=== PATIENT | female | born 1990 | race Hispanic/Latino ===

== ENCOUNTER 2021-08-06 10:05 | Observation (INO) | payer OTHER ==
[2021-08-05 08:15] LABS: BASOPHILS % 0.4 % (0.0-1.0); EOSINOPHILS # (AUTO) 0.2 (0.0-0.4); EOSINOPHILS % 2.6 % (0.0-6.0); LYMPHOCYTES # (AUTO) 1.7 (1.0-3.2); LYMPHOCYTES % 23.2 % (18.0-39.1); MEAN CORPUSCULAR HEMOGLOBIN 29.6 pg (28-32); MEAN CORPUSCULAR HGB CONC 32.4 g/dL (31-35); MEAN CORPUSCULAR VOLUME 91.1 fL (81-99); MONOCYTES # (AUTO) 0.7 (0.2-0.8); MONOCYTES % 9.6 % (4.4-11.3); NEUTROPHILS # (AUTO) 4.6 (2.1-6.9); NEUTROPHILS % 64.1 % (38.7-80.0); PLATELET COUNT 260 x10e3/uL (140-360); RED BLOOD COUNT 4.06 x10e6/uL (3.6-5.1); RED CELL DISTRIBUTION WIDTH 12.7 % (11.7-14.4)
[~2021-08-06] VITALS: Ht 162.6 cm; Wt 60.8 kg
[2021-08-06 10:56] LABS: CLARITY,URINE CLEAR (CLEAR); COLOR,URINE YELLOW (YELLOW); KETONES,URINE NEGATIVE (NEGATIVE); LEUKOCYTE ESTERASE ,URINE NEGATIVE (NEGATIVE); NITRITE,URINE NEGATIVE (NEGATIVE); PROTEIN,URINE DIPSTICK NEGATIVE (NEGATIVE); URINE UROBILINOGEN 0.2 mg/dL (0.2 - 1)
[2021-08-06] MEDS ORDERED: LIDOCAINE 1% W/EPINEPHRINE 20 ML VIAL ONE (12:06)
[2021-08-06] MEDS ORDERED: BUPIVACAINE 0.25% 30ML SDV ONE (12:07)
[2021-08-06] MEDS ORDERED: ACETAMINOPHEN 325 MG TAB PO PRN (15:45)
[2021-08-06] MEDS ORDERED: ONDANSETRON HCL INJ 2MG/ML 2ML 2 MG/ML VIAL IV PRN (15:45)
[2021-08-06] MEDS ORDERED: BISACODYL 10 MG SUPP PR PRN (15:45)
[2021-08-06] MEDS ORDERED: DIPHENHYDRAMINE HCL 25 MG CAP PO PRN (15:45)
[2021-08-06] MEDS ORDERED: DOCUSATE SODIUM 100 MG CAP PO PRN (15:45)
[2021-08-06] MEDS ORDERED: ACETAMINOPHEN/CODEINE 300MG - 30MG TAB PO PRN (15:45)
[2021-08-06] MEDS ORDERED: MEPERIDINE HCL INJ 25 MG/ML VIAL ONE (15:57)
[2021-08-06] MEDS ORDERED: KETOROLAC TROMETHAMINE 30 MG/ML VIAL ONE (16:01)
[2021-08-06] MEDS ORDERED: ACETAMINOPHEN 1000 MG/100 ML 100 ML IV ONE (16:15)
[2021-08-06] MEDS ORDERED: HYDROMORPHONE 1MG/1ML INJ ONE (16:15)
[2021-08-06 17:20] VITALS: BP 115/70
[2021-08-06 17:50] VITALS: BP 115/70
[2021-08-06 17:57] VITALS: BP 115/70
[2021-08-06] MEDS: LACTATED RINGER'S 1,000 ML IV SCH (18:00)
[2021-08-06] MEDS: KETOROLAC TROMETHAMINE 30 MG/ML VIAL IV SCH ×3 (18:15→18:46)
[2021-08-06] MEDS: SIMETHICONE 80 MG CHEW PO SCH ×2 (18:17→20:34)
[2021-08-06 20:00] VITALS: BP 98/57
[2021-08-06 21:00] VITALS: BP 98/57
[2021-08-07] VITALS: BP 94/50
[2021-08-07] MEDS: LACTATED RINGER'S 1,000 ML IV SCH ×3 (03:25→13:48)
[2021-08-07 03:47] VITALS: BP 92/64
[2021-08-07 04:35] VITALS: BP 106/63
[2021-08-07] MEDS: MORPHINE SULFATE INJ 4 MG/ML INJ 1ML IV PRN ×3 (04:35→14:59)
[2021-08-07 05:04] LABS: BASOPHILS % 0.2 % (0.0-1.0); HEMATOCRIT 35.3 % (34.2-44.1); HEMOGLOBIN 11.4 g/dL (12.0-16.0); LYMPHOCYTES # (AUTO) 1.2 (1.0-3.2); LYMPHOCYTES % 9.3 % (18.0-39.1); MEAN CORPUSCULAR HEMOGLOBIN 29.5 pg (28-32); MEAN CORPUSCULAR HGB CONC 32.3 g/dL (31-35); MEAN CORPUSCULAR VOLUME 91.5 fL (81-99); MONOCYTES # (AUTO) 0.8 (0.2-0.8); MONOCYTES % 6.2 % (4.4-11.3); NEUTROPHILS # (AUTO) 10.7 (2.1-6.9); PLATELET COUNT 202 x10e3/uL (140-360); RED BLOOD COUNT 3.86 x10e6/uL (3.6-5.1); RED CELL DISTRIBUTION WIDTH 12.5 % (11.7-14.4)
[2021-08-07 05:23] LABS: ANION GAP 13.7 mmol/L (8-16); CALCIUM 7.9 mg/dL (8.4-10.2); CREATININE, SERUM 0.67 mg/dL (0.57-1.11); POTASSIUM 3.7 mmol/L (3.5-5.1)
[2021-08-07] MEDS: SIMETHICONE 80 MG CHEW PO SCH ×2 (05:56→11:34)
[2021-08-07] MEDS: KETOROLAC TROMETHAMINE 30 MG/ML VIAL IV SCH ×3 (05:56→11:34)
[2021-08-07 07:16] VITALS: BP 106/63
[2021-08-07 07:49] VITALS: BP 103/59
[2021-08-07] MEDS ORDERED: HYDROCODONE/APAP 10MG-325MG TAB PO PRN (11:00)
[2021-08-07 11:43] VITALS: BP 106/66
[2021-08-07] MEDS ORDERED: HYDROCODON-ACE1 EAC9 PO (14:14)
[2021-08-07] MEDS ORDERED: MOTRIN200 MG PO (14:21)
[2021-08-07] MEDS ORDERED: AUGMENTIN 500-1 EACH PO (14:22)
== END 2021-08-07 15:30 | disposition home or self-care (01) ==
LOC: OR 10:05 → PACU V 15:38 → MED/SURG 17:14
PROVIDERS: ADMIT Obstetrics & Gynecology; ATTEND Obstetrics & Gynecology
DX: D27.0 Benign neoplasm of right ovary (principal); Z20.822 Contact with and (suspected) exposure to COVID-19; Z01.818 Encounter for other preprocedural examination
CPT/HCPCS: 36415 ×2; 58925; 80048; 81003; 84702; 85025 ×2; 88304; G0378 ×2; J0131; J0690 ×2; J1170; J1885 ×2; J2175; J2270; J2405; J7050 ×2; J7121 ×2; U0002; 88305